=== PATIENT | female | born 1995 | race Caucasian/White ===

== ENCOUNTER 2016-09-22 19:05 | Emergency (ER) | payer OTHER ==
[2016-09-22 19:19] VITALS: BP 137/67
--- NOTE | 2016-09-22 19:51 | UC ---
Hand/Wrist HPI - HPI Summary HPI Summary: complaint of right hand pain that started approx 3 weeks ago after punching a telephone poll pain in hand is not improving pain in her hand and radiates into the wrist moving her hand ,gripping makes the pain worse complaint of left thumb pain that started approx 2 weeks ago after falling while she was drunk heard a pop in her hand constant aching pain that is non radiating difficulty to bend her thumb taking ibuprofen with some relief today she had a panic attack at work that lasted for approx 1 hour todays attack was caused by stress hx of depression - denies suicidal ideation has appt with PCP on the 10/14/16 - History Of Current Complaint Chief Complaint: UCUpperExtremity Stated Complaint: LFT THUMB/RT INDEX INJURY Time Seen by Provider: 09/22/16 19:44 Hx Obtained From: Patient Hx Last Menstrual Period: 08/24/16 - Allergies/Home Medications Allergies/Adverse Reactions: Allergies Allergy/AdvReac Type Severity Reaction Status Date / Time Amoxicillin Allergy Hives Verified 09/22/16 19:19 PMH/Surg Hx/FS Hx/Imm Hx Previously Healthy: Yes - Surgical History Surgical History: Yes Surgery Procedure, Year, and Place: CYST REMOVED FROM SHOULDER. [facility] - Family History Known Family History: Negative: Cardiac Disease, Hypertension, Diabetes - Social History Occupation: Employed Full-time Alcohol Use: None Substance Use Type: None Smoking Status (MU): Light Every Day Tobacco Smoker Type: Cigarettes Amount Used/How Often: 2-3 CIGS PER DAY Length of Time of Smoking/Using Tobacco: 4 YRS Have You Smoked in the Last Year: Yes Cessation Counseling: Patient Advised to Stop Review of Systems Constitutional: Negative Skin: Negative Eyes: Negative ENT: Negative Respiratory: Negative Cardiovascular: Negative Gastrointestinal: Negative Genitourinary: Negative Motor: Negative Neurovascular: Negative Musculoskeletal: Other: - bilateral hand pain Neurological: Negative Psychological: Negative All Other Systems Reviewed And Are Negative: Yes Physical Exam Triage Information Reviewed: Yes Appearance: No Pain Distress, Well-Nourished Vital Signs: Initial Vital Signs Temp 99.2 F 09/22/16 19:13 Pulse 100 09/22/16 19:13 Resp 14 09/22/16 19:13 BP 137/67 09/22/16 19:13 Pulse Ox 100 09/22/16 19:13 Vital Signs Reviewed: Yes Eyes: Positive: Conjunctiva Clear ENT: Positive: Pharynx normal, TMs normal Neck: Positive: No Lymphadenopathy Respiratory: Positive: Lungs clear, Normal breath sounds, No respiratory distress, No accessory muscle use Cardiovascular: Positive: RRR, No Murmur, Pulses Normal Musculoskeletal: Positive: Other: - right hand-point tenderness 1st in 2nd metacarpals, no snuff box tenderness left hand - point tenderness throughout thumb- no snuff box tenderness full ROM in all joints Neurological: Positive: Alert Psychological Exam: Normal Psychological: Positive: Other: - doesn't appear anxious, normal affect good eye contact Skin Exam: Normal Hand/Wrist Course/Dx - Differential Dx/Diagnosis Differential Diagnosis/HQI/PQRI: Fracture, Sprain, Strain, Other - anxiety, depression Provider Diagnoses: left wrist sprain. right hand sprain. anxiety Discharge - Discharge Plan Condition: Stable Disposition: HOME Prescriptions: hydrOXYzine PAMOATE CAP* [Vistaril CAP*] 25 mg PO Q4H PRN #32 cap PRN Reason: Anxiety Patient Education Materials: Anxiety (ED), Contusion in Adults (ED), RICE Therapy (ED) Referrals: Christina Fang [Primary Care Provider] - Additional Instructions: Please start medication as directed Increase fluids and rest Take acetaminophen or ibuprofen for fever or pain Please review your discharge instructions. If your symptoms do not improve please call your primary care provider or return to urgent care.
--- NOTE | 2016-09-22 20:39 | RAD ---
INDICATION: Pain at the right second metacarpal phalangeal joint 3 weeks after punching a telephone pole COMPARISON: None. TECHNIQUE: 2 views of the right hand were obtained. FINDINGS: The adequately corticated bones are in normal alignment. No significant focal osseous abnormality or fracture is seen. Joint spaces appear maintained. IMPRESSION: Normal right hand radiograph. If the patient's symptoms persist, follow-up imaging is recommended.
--- NOTE | 2016-09-22 20:40 | RAD ---
INDICATION: Left wrist pain and pain at the base of the left thumb 2 weeks after a fall COMPARISON: None. TECHNIQUE: 2 views left wrist. REPORT: The visualized bones are properly aligned and well corticated. The joint spaces are normal.There is no fracture, dislocation or other focal osseous abnormality. IMPRESSION: Normal radiograph of the left wrist. If the patient's symptoms persist, follow-up imaging is recommended.
== END 2016-09-22 20:50 | disposition home or self-care (01) ==
LOC: UCCORT 19:05
DX: S63.502A Unspecified sprain of left wrist, initial encounter (principal); S63.91XA Sprain of unspecified part of right wrist and hand, initial encounter; W22.01XA Walked into wall, initial encounter; Y93.9 Activity, unspecified; Y92.9 Unspecified place or not applicable; Z32.02 Encounter for pregnancy test, result negative; F41.9 Anxiety disorder, unspecified; Z88.1 Allergy status to other antibiotic agents; F17.210 Nicotine dependence, cigarettes, uncomplicated
CPT/HCPCS: 84702; 99212; G0463

== ENCOUNTER 2018-01-19 13:45 | Emergency (ER) | payer OTHER ==
[2018-01-19 14:11] VITALS: BP 121/62
--- NOTE | 2018-01-19 14:42 | UC ---
Abdominal Pain Female HPI - HPI Summary HPI Summary: nausea / vomiting x 1 week pt. is 8 weeks , has been having bad morning sickness no abdominal pain , no diarrhea, no constipation , no urinary sx - History of Current Complaint Chief Complaint: UCGeneralIllness Stated Complaint: NAUSEA, 8 WKS PREG Hx Last Menstrual Period: 08/24/16 ?: Yes Onset/Duration: Gradual Onset, Lasting Days - 7, Still Present Timing: Constant Severity Initially: Moderate Severity Currently: Moderate Pain Intensity: 0 Location: Diffuse Radiates: No Character: Cramping Aggravating Factor(s): Food Alleviating Factor(s): Nothing Associated Signs and Symptoms: Positive: Nausea, Vomiting Allergies/Adverse Reactions: Allergies Allergy/AdvReac Type Severity Reaction Status Date / Time amoxicillin Allergy Unknown Verified 01/19/18 14:07 Reaction Details Home Medications: Home Medications Vit37/Iron/Folic Acid [Prenata] 1 chw PO DAILY 01/19/18 [History Confirmed 01/19/18] PMH/Surg Hx/FS Hx/Imm Hx Previously Healthy: Yes - Surgical History Surgical History: Yes Surgery Procedure, Year, and Place: CYST REMOVED FROM SHOULDER. Appy - Family History Known Family History: Negative: Cardiac Disease, Hypertension, Diabetes - Social History Alcohol Use: None Substance Use Type: None Smoking Status (MU): Former Smoker Type: Cigarettes Amount Used/How Often: 2-3 CIGS PER DAY Length of Time of Smoking/Using Tobacco: 4 YRS Have You Smoked in the Last Year: Yes Review of Systems All Other Systems Reviewed And Are Negative: Yes Constitutional: Positive: Negative Skin: Positive: Negative Eyes: Positive: Negative ENT: Positive: Negative Gastrointestinal: Positive: Vomiting, Nausea Is Patient Immunocompromised?: No Physical Exam Triage Information Reviewed: Yes Appearance: Well-Appearing, No Pain Distress, Well-Nourished Vital Signs: Initial Vital Signs Temp 98 F 01/19/18 14:04 Pulse 84 01/19/18 14:04 Resp 17 01/19/18 14:04 BP 121/62 01/19/18 14:04 Pulse Ox 98 01/19/18 14:04 Vital Signs Reviewed: Yes Eyes: Positive: Conjunctiva Clear ENT: Positive: Normal ENT inspection, Hearing grossly normal, Pharynx normal Neck: Positive: Supple, Nontender Respiratory: Positive: Chest non-tender, Lungs clear, Normal breath sounds Cardiovascular: Positive: RRR, No Murmur, Pulses Normal Abdominal Exam: Normal Abdomen Description: Positive: Nontender, Soft. Negative: CVA Tenderness (R), CVA Tenderness (L), Distended, Guarding Bowel Sounds: Positive: Present Skin Exam: Normal Abd Pain Female Course/Dx - Differential Dx/Diagnosis Provider Diagnosis: Nausea & vomiting Discharge - Sign-Out/Discharge Documenting (check all that apply): Patient Departure All imaging exams completed and their final reports reviewed: No Studies - Discharge Plan Condition: Stable Disposition: HOME Prescriptions: Doxylamine/Pyridoxine(NF) [Diclegis (NF)] 2 tab PO TID PRN #15 tab PRN Reason: Nausea/Vomiting Patient Education Materials: Nausea and Vomiting in (ED) Forms: *Work Release Referrals: Christina Fang [Primary Care Provider] - As Soon As Possible - Billing Disposition and Condition Condition: STABLE Disposition: Home
--- NOTE | 2018-01-19 16:38 | UC ---
- Progress Note Progress Note: t/c from pharamcy stating above medication is Non-formulary. doxlamine is unisom and is acceptable for -recommend she buy OTC and f/u w/ her pcp Course/Dx - Diagnoses Provider Diagnoses: Nausea & vomiting Discharge - Sign-Out/Discharge Documenting (check all that apply): Post-Discharge Follow Up All imaging exams completed and their final reports reviewed: No Studies - Discharge Plan Condition: Stable Disposition: HOME Prescriptions: Doxylamine/Pyridoxine(NF) [Diclegis (NF)] 2 tab PO TID PRN #15 tab PRN Reason: Nausea/Vomiting Patient Education Materials: Nausea and Vomiting in (ED) Forms: *Work Release Referrals: Christina Fang [Primary Care Provider] - As Soon As Possible - Billing Disposition and Condition Condition: STABLE Disposition: Home
== END 2018-01-19 14:44 | disposition home or self-care (01) ==
LOC: UCCORT 13:45
DX: O21.9 Vomiting of pregnancy, unspecified (principal); Z3A.08 8 weeks gestation of pregnancy; Z88.0 Allergy status to penicillin; Z87.891 Personal history of nicotine dependence
CPT/HCPCS: 99212; G0463